=== PATIENT | female | born 1975 | race Two or more races ===

== ENCOUNTER 2017-06-04 18:26 | Emergency (ER) | payer OTHER ==
[~2017-06-04] VITALS: Ht 157.5 cm; Wt 83.5 kg
[2017-06-04] MEDS ORDERED: MEDROLPACK PO (19:29)
[2017-06-04] MEDS ORDERED: DICLOFENAC SODI50 MG PO (19:29)
== END 2017-06-04 21:52 | disposition home or self-care (01) ==
LOC: ER 18:26
DX: M79.1 Myalgia (principal); M94.0 Chondrocostal junction syndrome [Tietze]